=== PATIENT | female | born 1945 | race Caucasian/White ===

== ENCOUNTER 2019-09-13 07:10 | Outpatient (CLI) | payer MEDICARE, SELFPAY ==
[2019-09-13 07:33] LABS: Basophils Absolute Auto 0.04 K/mm3 (0.00-0.10); Basophils Percent Auto 0.7 % (0.0-1.0); Eosinophils Absolute Auto 0.04 K/mm3 (0.02-0.50); Eosinophils Percent Auto 0.7 % (1.0-6.0); Hematocrit 38.7 % (35.0-42.0); Hemoglobin 13.1 g/dL (11.7-13.8); Immature Granulocyte Absolute 0.02 K/mm3 (0.00-0.00); Immature Granulocyte Percent A 0.4 % (0.0-0.0); Lymphocytes Absolute Auto 1.44 K/mm3 (1.10-4.50); Lymphocytes Percent Auto 26.6 % (18.0-42.0); Mean Corpuscular HGB Conc 33.9 g/dL (32.0-36.0); Mean Corpuscular Hemoglobin 34.5 pg (27.0-31.0); Mean Corpuscular Volume 101.8 fL (78.0-102.0); Monocytes Percent Auto 9.2 % (2.0-11.0); Neutrophils Absolute Auto 3.4 K/mm3 (1.7-7.2); Neutrophils Percent Auto 62.4 % (50.0-70.0); Platelet Count Result 205 K/mm3 (150-420); Red Cell Distribution Width 12.1 % (11.6-14.4); White Blood Count 5.4 K/mm3 (4.8-10.8)
[2019-09-13 14:04] LABS: Alanine Aminotransferase 22 U/L (14-59); Albumin Level 3.8 g/dL (3.4-5.0); Alkaline Phosphatase 151 U/L (46-116); Anion Gap 16.5 mmol/L (7-16); Aspartate Amino Transferase 28 U/L (15-37); Bilirubin,Total 0.7 mg/dL (0.00-1.00); Blood Urea Nitrogen 20 mg/dL (7-18); Calcium 10.6 mg/dL (8.5-10.1); Carbon Dioxide 26 mmol/L (21-32); Chloride 99 mmol/L (98-108); Cholesterol 182 mg/dL (0-200); Estimated Glomerular Filt Rate 37; Glucose 92 mg/dL (70-99); HDL Direct 90 mg/dL (40-60); LDL Cholesterol Calculated 78 mg/dL (<130); Osmolality Calculated 286 mOsm/kg (285-295); Potassium 4.5 mmol/L (3.5-5.1); Sodium 137 mmol/L (136-145); Total Protein 6.9 g/dL (6.4-8.2); Triglycerides 68 mg/dL (0-150)
[2019-09-13 14:15] LABS: Thyroid Stimulating Hormone Reflex 2.47 u/IU/mL (0.36-3.74)
== END 2019-09-13 07:11 | disposition home or self-care (01) ==
PROVIDERS: PCP Family Medicine; Visit Provider Family Medicine
DX: E78.5 Hyperlipidemia, unspecified (principal); I10 Essential (primary) hypertension; I47.1 Supraventricular tachycardia
CPT/HCPCS: 36415; 80053; 80061; 84443; 85025

== ENCOUNTER 2019-10-25 09:56 | Outpatient (RCR) | payer MEDICARE, SELFPAY ==
--- NOTE | 2019-10-25 10:58 | PTOPEVAL ---
Thank you for referring Claudy Ashford to [facility].? The patient is scheduled to be seen for therapy? ____x/week for ___ weeks. Please review, sign, date and return this plan of care MARINO. I agree with and certify that the following plan of care is medically necessary. Referring Physician Date Admitting Provider: Attending Provider: Ev Jones NP Referring Provider: *PT Outpatient Evaluation Start: 10/25/19 10:08 Freq: Status: Active Protocol: Document 10/25/19 10:08 JOSE GUADALUPE (Rec: 10/25/19 10:46 JOSE GUADALUPE [email or web address]) Therapy Assessment Status Assessment Status Assessment Status Evaluation Evaluation Information Problem Diagnosis sciatica Subjective Information Pt. reports she developed left Query Text:As Reported By Patient/ back/buttock pain on 10/15/19. Family She reports that pain began to worsen and she reports she saw her doctor. She reports the past couple days pain has improved. She reports that the pain is stabbing, and most notable when she is upright. She reports she uses Tylenol for pain relief. She reports that sleep is not disturbed. She state that her goal is to decrease her buttock pain with standing activities. Prior Level of Function Activity Level (Last 3 Months) Occupation retired Hand Dominance Right Activity of Daily Living Ability Independent Indoor/Home Mobility Independent Community Mobility Independent Stairs Ability Independent Functional Cognition (Planning, Shopping Independent , Taking Medications) Cooking Yes Cleaning Yes Laundry Yes Shopping Yes Driving Yes Pain Assessment Timing of Pain Assessment Timing of Pain Assessment Pre-Treatment Pain Scale Pain Scale Used Numeric (1 - 10) Self Report Pain Assessment Left Lower Back Reported Pain Level 2 Pain Description Aching Pain Frequency Continuous Lowest Pain Intensity 2 Greatest Pain Intensity 9 Pain Aggravating Factors Bending,Walking Pain Relief Interventions Used By Inactivity/Rest Patient Pain Score Pain Score 2: Self Report Cervical and Lumbar ROM Lumbar ROM Lumbar Flexion (0-90) 60
--- NOTE | 2019-11-24 09:10 | PTOPEVAL ---
Thank you for referring Claudy Ashford to [facility]. I am providing a report regarding her discharge status I agree with and certify that the following plan of care is medically necessary. Referring Physician Date Admitting Provider: Attending Provider: Ev Jones NP Referring Provider: *PT Outpatient Evaluation Start: 10/25/19 10:08 Freq: Status: Active Protocol: Document 11/24/19 08:39 REYSenait (Rec: 11/24/19 09:10 JOSE GUADALUPE [email or web address]) Therapy Assessment Status Assessment Status Assessment Status Discharge Evaluation Information Problem Diagnosis sciatica Additional Evaluation Detail Oswestry 24% limitation Subjective Information Pt. reports that pain Query Text:As Reported By Patient/ intensity has decreased. She Family states that she has no difficulty with sleeping. She reports she is taking 2 Tylenol arthritis daily still. She notes an improvement in flexibility. she notes less intense pain with navigating steps, which was painful several weeks ago. Pain Assessment Pain Scale Pain Scale Used Numeric (1 - 10) Self Report Pain Assessment Left Lower Back Reported Pain Level 1 Greatest Pain Intensity 2 Pain Score Pain Score 1: Self Report Lower Extremity Muscle Strength Testing General Lower Extremity Strength Gross Lower Extremity Strength bilateral hip flexion 5/5 bilateral knee flexion 5/5 bilateral knee extension 5/5 bilateral ankle dorsiflexion 5 /5 Muscle Length Testing Muscle Length Testing Left Hamstring Length 15 Query Text:(90 - 90 Position) Right Hamstring Length 15 Query Text:(90 - 90 Position) Palpation Assessment Palpation Palpation TTP noted at the area of the left gluteal ridge. Pt. is able to attain supine without increase in pain. Gait Assessment Gait Assessment Additional Ambulation Comments Pt. ambulates without deviation on this date. General Exercise General Exercises Exercise Description Reviewed pt. HEP and assured Query Text:Record Sets, Reps, she was independent with all Resistance, and Position exericse. Addressed body mechanics and proper lifting on this date with the pt. She
== END 2019-11-24 09:28 | disposition home or self-care (01) ==
LOC: CHSPT 09:56
PROVIDERS: PCP Nurse Practitioner Family; Visit Provider Nurse Practitioner Family
DX: M25.552 Pain in left hip (principal)
CPT/HCPCS: 97014; 97110; 97140; 97161; G0283

== ENCOUNTER 2020-05-30 08:09 | Outpatient (CLI) | payer MEDICARE, SELFPAY ==
--- NOTE | ~2020-05-30 | MM_ITS ---
EXAMINATION: MM screening contra [facility] BI w neal HISTORY: Screening mammogram TECHNIQUE: Craniocaudal and mediolateral oblique 3-D tomosynthesis images were obtained and synthetic 2-D images were generated. CAD analysis was submitted and interpreted. COMPARISON: 09/07/2018, 07/22/2013 BREAST PARENCHYMAL COMPOSITION: The breasts are heterogeneously dense, which may obscure small masses . FINDINGS: Scattered benign-appearing calcifications are present. There is no evidence of suspicious m ass, calcification, or architectural distortion to suggest malignancy in either breast. There has bee n no suspicious interval change. IMPRESSION: 1. No mammographic evidence of malignancy. 2. Recommend routine screening mammography in one year. BI-RADS Category 2: Benign finding(s). Reviewed, dictated and finalized at location A.
== END 2020-05-30 08:10 | disposition home or self-care (01) ==
LOC: CHSIMG 08:12
PROVIDERS: PCP Nurse Practitioner Family; Visit Provider Nurse Practitioner Family
DX: Z12.31 Encounter for screening mammogram for malignant neoplasm of breast (principal)
CPT/HCPCS: 77063; 77067